=== PATIENT | female | born 1985 | race Caucasian/White ===

== ENCOUNTER 2018-11-03 15:41 | Emergency (ER) | payer BC ==
[~2018-11-03] VITALS: Ht 160 cm; Wt 57.6 kg
[2018-11-03 15:55] VITALS: BP 107/70
[2018-11-03] MEDS ORDERED: birth control pill (15:59)
[2018-11-03] MEDS ORDERED: AMOXICILLIN500 MG ORAL (16:08)
[2018-11-03 16:17] VITALS: BP 110/74
--- NOTE | 2018-11-03 16:17 | NUR ---
ER DISCHARGE NOTE: Pt was seen due to sore throat and coughing x 3 days. Patient is cleared to be discharged per PA, pt is aox4, on room air, with stable vital signs. pt was given dc and prescription instructions, pt was able to verbalize understanding, pt id band removed. pt is able to ambulate with steady gait. pt took all belongings.
--- NOTE | 2018-11-03 16:50 | Emergency Room Report ---
History of Present Illness General Chief Complaint: Sore Throat Source: Patient Present Illness HPI Patient presents emergency department today complaining of a sore throat. Patient states that she has had a sore throat for 2 to 3 days. She had a history of tonsillectomy as a child. She denies any fever but complains of difficulty swallowing because of the pain. Denies any nausea vomiting diarrhea chills. Denies any chest pain shortness of breath. Symptoms noted to be moderate to severe. Patient states that she has white spots in back of her throat. No other modifying factors. No other associated signs and symptoms. No other complaints were noted. Allergies: Coded Allergies: No Known Allergies (Unverified , 11/03/18) Patient History Past Medical History: none Past Surgical History: other - Tonsillectomy Pertinent Family History: none Social History: Denies: smoking, alcohol use, drug use Last Menstrual Period: 11/01/2018 Reviewed Nursing Documentation: PMH: Agreed; PSxH: Agreed Nursing Documentation-PMH Past Medical History: No History, Except For Review of Systems All Other Systems: negative except mentioned in HPI Physical Exam Vital Signs Date Time Temp Pulse Resp B/P (MAP) Pulse Ox O2 Delivery O2 Flow Rate FiO2 11/03/18 15:55 98.6 75 18 107/70 (82) 97 Room Air Sp02 EP Interpretation: reviewed, normal General Appearance: normal inspection, well appearing, no apparent distress, alert Head: atraumatic Eyes: bilateral eye normal inspection ENT: hearing grossly normal, normal voice, pharyngeal erythema Neck: normal inspection, full range of motion, supple, no bony tend Respiratory: normal inspection, lungs clear, normal breath sounds, no respiratory distress, no retraction, no wheezing Cardiovascular #1: regular rate, rhythm, no edema Gastrointestinal: normal inspection, normal bowel sounds, non tender, soft, no guarding, no hernia Genitourinary: no CVA tenderness Musculoskeletal: normal inspection, back normal, normal range of motion Neurologic: normal inspection, alert, responsive, speech normal Psychiatric: normal inspection, judgement/insight normal, mood/affect normal Medical Decision Making Diagnostic Impression: Primary Impression: Sore throat ER Course Patient presents emergency department today complaining of sore throat. Differential considerations include pharyngitis, viral pharyngitis, strep throat , peritonsillar abscess, postnasal drip just to name a few. Patient's exam is consistent with pharyngitis. Patient was given a prescription for antibiotics.Patient is advised to follow up with primary doctor in 2-3 days and return the emergency room for any worsening symptoms and as needed. Last Vital Signs Date Time Temp Pulse Resp B/P (MAP) Pulse Ox O2 Delivery O2 Flow Rate FiO2 11/03/18 16:17 98.2 80 15 110/74 99 Room Air Status: improved Disposition: HOME, SELF-CARE Condition: Stable Scripts Amoxicillin* (AMOXIL*) 500 Mg Capsule 500 MG ORAL THREE TIMES A DAY, #30 CAP Prov: Maxx Gomez MD 11/03/18 Referrals: NON PHYSICIAN (PCP) Patient Instructions: Pharyngitis Maxx Gomez MD Nov 03, 2018 16:50
== END 2018-11-03 16:30 | disposition home or self-care (01) ==
LOC: EMR 16:30
DX: R07.0 Pain in throat (principal)
CPT/HCPCS: 99282